=== PATIENT | male | born 1930 | race Caucasian/White ===

== ENCOUNTER 2017-09-22 14:07 | Inpatient (IN) | payer MEDICARE ==
[~2017-09-22] VITALS: Ht 180.3 cm; Wt 77.9 kg
[2017-09-22 15:11] LABS: BASOPHILS % (AUTO) 0.4 % (0.0-5.0); EOSINOPHILS % (AUTO) 1.7 % (0.0-8.0); HEMATOCRIT 27.2 % (42-54); MEAN CORPUSCULAR HEMOGLOBIN 34.4 pg (27.0-33.0); MEAN CORPUSCULAR HGB CONC 35.5 g/dL (32.0-36.0); MEAN CORPUSCULAR VOLUME 96.9 fL (79-99); MONOCYTES % (AUTO) 7.4 % (3.0-13.0); NEUTROPHILS % (AUTO) 77.5 % (40.0-77.0); PLATELET COUNT (AUTO) 220 K/uL (130-400); RED BLOOD CELL COUNT(AUTO) 2.81 MIL/uL (4.50-6.20); RED CELL DISTRIBUTION WIDTH 14.6 % (11.0-15.5); WHITE BLOOD COUNT (AUTO) 8.6 K/uL (4.8-10.8)
[2017-09-22 15:15] LABS: BILIRUBIN,URINE Negative (NEGATIVE); COLOR,URINE Yellow (YELLOW); GLUCOSE, URINE (UA) Negative (NEGATIVE); KETONES,URINE Negative (NEGATIVE); LEUKOCYTE ESTERASE ,URINE Large (NEGATIVE); NITRATE,URINE Negative (NEGATIVE); OCCULT BLOOD,URINE Moderate (NEGATIVE); PROTEIN,URINE Negative (NEGATIVE); UROBILINOGEN,URINE 0.2 mg/dL (0.2-1.0)
[2017-09-22 15:28] LABS: CREATININE 2.3 mg/dL (0.5-1.5); POTASSIUM 4.2 mmol/L (3.5-5.1)
[2017-09-22 15:33] LABS: ALBUMIN 1.8 g/dL (3.5-5.0); BILIRUBIN,TOTAL 0.6 mg/dL (0.2-1.0); TOTAL PROTEIN, SERUM 6.8 g/dL (6.0-8.3)
[2017-09-22 15:38] LABS: APPEARANCE,URINE SLIGHTLY CLOUDY (CLEAR)
[2017-09-22 15:51] LABS: BACTERIA,URINE Few /HPF (None Seen)
[2017-09-22 15:52] LABS: AMORPHOUS SEDIMENT,UR Few /LPF (None Seen); SQUAMOUS EPITHELIAL CELL,UR Rare /LPF (0-2)
[2017-09-22] MEDS ORDERED: CEFTRIAXONE SODIUM 2 GM VIAL ONE (16:58)
[2017-09-22] MEDS ORDERED: SODIUM CHLORIDE 0.9% 1000ML 1,000 ML IV ONE (16:58)
[2017-09-22] MEDS: SODIUM CHLORIDE 0.9% 1000ML 1,000 ML IV SCH (18:21)
[2017-09-22] MEDS ORDERED: HYDRALAZINE HCL 20 MG/ML VIAL IV PRN (18:30)
[2017-09-22] MEDS ORDERED: ONDANSETRON HCL 4 MG/2 ML VIAL IV PRN (18:30)
[2017-09-22] MEDS ORDERED: ACETAMINOPHEN-CODEINE 300/30MG TAB PO PRN (18:30)
[2017-09-22] MEDS ORDERED: LACTULOSE 20 GM/30 ML UDCUP PO PRN (18:30)
[2017-09-22] MEDS ORDERED: CEFTRIAXONE 1GM/D5W 50ML 50 ML IV SCH (18:30)
[2017-09-22] MEDS ORDERED: ACETAMINOPHEN 325 MG TAB PO PRN (18:30)
[2017-09-22] MEDS ORDERED: MORPHINE SULFATE 2 MG/ML 1ML SYG IV PRN (18:30)
[2017-09-22] MEDS ORDERED: GUAIFENESIN-DM 200/20 MG 10 ML PO PRN (18:30)
[2017-09-22] MEDS: FAMOTIDINE 20MG TAB 20 MG TAB PO SCH ×2 (21:00)
[2017-09-22] MEDS ORDERED: FAMOTIDINE 20MG TAB 20 MG TAB ONE (22:02)
[2017-09-22 23:03] VITALS: BP 90/62
[2017-09-22] MEDS ORDERED: RAMI10CA23 PO (23:29)
[2017-09-22] MEDS ORDERED: CLOP75TA14 PO (23:29)
[2017-09-22] MEDS ORDERED: OXYB5TAB10 PO (23:29)
[2017-09-22] MEDS ORDERED: METF500T6 PO (23:29)
[2017-09-22] MEDS ORDERED: SERT50TA PO (23:29)
[2017-09-22] MEDS ORDERED: ROSU20TA38 PO (23:29)
[2017-09-22] MEDS ORDERED: PANT40TA25 PO (23:29)
[2017-09-22] MEDS ORDERED: TAMS0.4C32 PO (23:29)
[2017-09-23] VITALS (7 sets, daily range): BP systolic 108–144; BP diastolic 45–78
[2017-09-23] MEDS ORDERED: DiphenhydrAMINE HCL 50 MG/ML VIAL ONE (00:20)
[2017-09-23] MEDS: SODIUM CHLORIDE 0.9% 1000ML 1,000 ML IV SCH ×2 (06:06→21:32)
[2017-09-23] MEDS: PANTOPRAZOLE SODIUM 40 MG TABLET.DR PO SCH (08:34)
[2017-09-23] MEDS: SERTRALINE HCL 50 MG TABLET PO SCH (09:00)
[2017-09-23] MEDS: LISINOPRIL 40 MG TABLET PO SCH (09:00)
[2017-09-23] MEDS: CLOPIDOGREL BISULFATE 75 MG TAB PO SCH (09:00)
[2017-09-23] MEDS: FAMOTIDINE 20MG TAB 20 MG TAB PO SCH ×3 (09:00→21:32)
[2017-09-23] MEDS: TAMSULOSIN HCL 0.4 MG CAP.ER.24H PO SCH (09:00)
[2017-09-23] MEDS: ENOXAPARIN SODIUM 40 MG/0.4 ML SYRINGE SQ SCH (09:00)
[2017-09-23] MEDS: CEFTRIAXONE SODIUM 1 GM IVP SCH (12:38)
[2017-09-23] MEDS: ATORVASTATIN CALCIUM 40 MG TABLET PO SCH (21:32)
[2017-09-23] MEDS: OXYBUTYNIN CHLORIDE 5 MG TABLET PO SCH (21:32)
[2017-09-23] MEDS: DiphenhydrAMINE HCL 50 MG/ML VIAL IV SCH ×2 (21:33)
[2017-09-24] MEDS: SODIUM CHLORIDE 0.9% 1000ML 1,000 ML IV SCH ×3 (00:31→20:46)
[2017-09-24 04:35] VITALS: BP 139/74
[2017-09-24 07:00] VITALS: BP 124/71
[2017-09-24] MEDS: LISINOPRIL 40 MG TABLET PO SCH (09:00)
[2017-09-24] MEDS: TAMSULOSIN HCL 0.4 MG CAP.ER.24H PO SCH (09:54)
[2017-09-24] MEDS: FAMOTIDINE 20MG TAB 20 MG TAB PO SCH ×2 (09:54→21:55)
[2017-09-24] MEDS: CLOPIDOGREL BISULFATE 75 MG TAB PO SCH (09:54)
[2017-09-24] MEDS: SERTRALINE HCL 50 MG TABLET PO SCH (09:55)
[2017-09-24] MEDS: PANTOPRAZOLE SODIUM 40 MG TABLET.DR PO SCH (09:58)
[2017-09-24] MEDS: ENOXAPARIN SODIUM 40 MG/0.4 ML SYRINGE SQ SCH (09:58)
[2017-09-24 11:00] VITALS: BP 110/58
[2017-09-24] MEDS: CEFTRIAXONE SODIUM 1 GM IVP SCH (11:13)
[2017-09-24 15:50] VITALS: BP 131/63
[2017-09-24 20:00] VITALS: BP 140/53
[2017-09-24] MEDS: ATORVASTATIN CALCIUM 40 MG TABLET PO SCH (21:55)
[2017-09-24] MEDS: OXYBUTYNIN CHLORIDE 5 MG TABLET PO SCH (21:55)
[2017-09-24] MEDS: DiphenhydrAMINE HCL 50 MG/ML VIAL IV SCH (23:16)
[2017-09-24 23:50] VITALS: BP 132/71
[2017-09-25 04:00] VITALS: BP 134/68
[2017-09-25] MEDS: SODIUM CHLORIDE 0.9% 1000ML 1,000 ML IV SCH ×2 (05:21→16:58)
[2017-09-25 06:18] LABS: BASOPHILS % (AUTO) 0.7 % (0.0-5.0); EOSINOPHILS % (AUTO) 2.6 % (0.0-8.0); HEMATOCRIT 27.6 % (42-54); LYMPHOCYTES % (AUTO) 15.1 % (21.0-51.0); MEAN CORPUSCULAR HEMOGLOBIN 33.2 pg (27.0-33.0); MEAN CORPUSCULAR HGB CONC 34.4 g/dL (32.0-36.0); MEAN CORPUSCULAR VOLUME 96.6 fL (79-99); MONOCYTES % (AUTO) 6.1 % (3.0-13.0); NEUTROPHILS % (AUTO) 75.5 % (40.0-77.0); PLATELET COUNT (AUTO) 239 K/uL (130-400); RED BLOOD CELL COUNT(AUTO) 2.85 MIL/uL (4.50-6.20); RED CELL DISTRIBUTION WIDTH 14.7 % (11.0-15.5); WHITE BLOOD COUNT (AUTO) 6.3 K/uL (4.8-10.8)
[2017-09-25 06:34] LABS: ALBUMIN 1.7 g/dL (3.5-5.0); BILIRUBIN,TOTAL 0.4 mg/dL (0.2-1.0); CREATININE 1.8 mg/dL (0.5-1.5); POTASSIUM 3.3 mmol/L (3.5-5.1); TOTAL PROTEIN, SERUM 6.3 g/dL (6.0-8.3)
[2017-09-25] MEDS: PANTOPRAZOLE SODIUM 40 MG TABLET.DR PO SCH (06:43)
[2017-09-25 07:00] VITALS: BP_SYST 133; BP_SYST 147; BP_DIAS 69; BP_DIAS 82
[2017-09-25] MEDS: SERTRALINE HCL 50 MG TABLET PO SCH (10:04)
[2017-09-25] MEDS: CLOPIDOGREL BISULFATE 75 MG TAB PO SCH (10:04)
[2017-09-25] MEDS: FAMOTIDINE 20MG TAB 20 MG TAB PO SCH ×2 (10:04→20:39)
[2017-09-25] MEDS: TAMSULOSIN HCL 0.4 MG CAP.ER.24H PO SCH (10:04)
[2017-09-25] MEDS: LISINOPRIL 40 MG TABLET PO SCH (10:04)
[2017-09-25] MEDS: ENOXAPARIN SODIUM 40 MG/0.4 ML SYRINGE SQ SCH (10:06)
[2017-09-25 11:00] VITALS: BP 130/62
[2017-09-25] MEDS: CEFTRIAXONE SODIUM 1 GM IVP SCH (12:00)
[2017-09-25 16:00] VITALS: BP 132/61
[2017-09-25 19:10] VITALS: BP 99/44
[2017-09-25] MEDS: OXYBUTYNIN CHLORIDE 5 MG TABLET PO SCH (20:39)
[2017-09-25] MEDS: ATORVASTATIN CALCIUM 40 MG TABLET PO SCH (20:39)
[2017-09-25 23:05] VITALS: BP 91/43
[2017-09-25] MEDS ORDERED: POTASSIUM CHLORIDE 20 MEQ ERTAB PO SCH (23:15)
[2017-09-25] MEDS ORDERED: POTASSIUM CHLORIDE 20 MEQ/100 ML BAG IV SCH (23:30)
[2017-09-26] MEDS: POTASSIUM CHLORIDE 20MEQ/100ML 100 ML IV SCH ×2 (00:03→20:08)
[2017-09-26] MEDS: SODIUM CHLORIDE 0.9% 1000ML 1,000 ML IV SCH (02:25)
[2017-09-26 03:05] VITALS: BP 112/61
[2017-09-26] MEDS ORDERED: GLUCAGON 1MG KIT 1 MG ML IM PRN (06:00)
[2017-09-26] MEDS: DEXTROSE 5 %-0.45 % NACL 1,000 ML IV SCH ×2 (06:00→15:09)
[2017-09-26] MEDS ORDERED: DEXTROSE 50%-WATER 50 ML DISP.SYRIN IV PRN (06:00)
[2017-09-26] MEDS ORDERED: DEXTROSE 5 %-0.45 % NACL 1,000 ML IV ONE (06:02)
[2017-09-26] MEDS ORDERED: DEXTROSE 50%-WATER 50 ML DISP.SYRIN IV ONE (06:02)
[2017-09-26] MEDS: INSULIN HUMULIN R 100 UNIT/ML 3ML SQ SCH ×4 (07:30→20:33)
[2017-09-26] MEDS: PANTOPRAZOLE SODIUM 40 MG TABLET.DR PO SCH (07:30)
[2017-09-26 07:44] VITALS: BP 134/54
[2017-09-26 07:59] LABS: CREATININE 1.8 mg/dL (0.5-1.5); POTASSIUM 3.3 mmol/L (3.5-5.1)
[2017-09-26] MEDS ORDERED: ZOSYN 3.375GM+NS 50ML 50 ML IV SCH (08:00)
[2017-09-26] MEDS: CLOPIDOGREL BISULFATE 75 MG TAB PO SCH (09:00)
[2017-09-26] MEDS: TAMSULOSIN HCL 0.4 MG CAP.ER.24H PO SCH (09:00)
[2017-09-26] MEDS: FAMOTIDINE 20MG TAB 20 MG TAB PO SCH ×2 (09:00→20:33)
[2017-09-26] MEDS: SERTRALINE HCL 50 MG TABLET PO SCH (09:00)
[2017-09-26] MEDS: LISINOPRIL 40 MG TABLET PO SCH (09:00)
[2017-09-26] MEDS: ENOXAPARIN SODIUM 40 MG/0.4 ML SYRINGE SQ SCH (09:27)
[2017-09-26] MEDS: CADEXOMER IODINE 40 GM GEL TP SCH (09:43)
[2017-09-26 10:51] VITALS: BP 126/49
[2017-09-26] MEDS ORDERED: POTASSIUM CHLORIDE 20 MEQ ERTAB PO PRN (12:45)
[2017-09-26] MEDS ORDERED: POTASSIUM CHLORIDE 10% ELIXIR 20 MEQ/15 ML UDCUP PO PRN (12:45)
[2017-09-26] MEDS: MEROPENEM 500 MG VIAL IVP SCH (15:01)
[2017-09-26] MEDS: POTASSIUM CHLORIDE 20MEQ/100ML 100 ML IV PRN ×2 (15:06→20:09)
[2017-09-26] MEDS: LIDOCAINE HCL-MPF 1% 2ML VIAL IVP PRN (15:06)
[2017-09-26 15:46] VITALS: BP 130/58
[2017-09-26 19:00] VITALS: BP 118/58
[2017-09-26] MEDS: OXYBUTYNIN CHLORIDE 5 MG TABLET PO SCH (20:33)
[2017-09-26] MEDS: ATORVASTATIN CALCIUM 40 MG TABLET PO SCH (20:33)
[2017-09-26 23:00] VITALS: BP 133/57
[2017-09-27] MEDS: MEROPENEM 500 MG VIAL IVP SCH ×2 (00:54→13:35)
[2017-09-27] MEDS: DEXTROSE 5 %-0.45 % NACL 1,000 ML IV SCH ×2 (00:54→11:32)
[2017-09-27 03:00] VITALS: BP 100/67
[2017-09-27 03:49] LABS: BASOPHILS % (AUTO) 0.7 % (0.0-5.0); EOSINOPHILS % (AUTO) 2.7 % (0.0-8.0); HEMATOCRIT 26.7 % (42-54); LYMPHOCYTES % (AUTO) 18.6 % (21.0-51.0); MEAN CORPUSCULAR HEMOGLOBIN 32.8 pg (27.0-33.0); MEAN CORPUSCULAR HGB CONC 33.7 g/dL (32.0-36.0); MEAN CORPUSCULAR VOLUME 97.6 fL (79-99); PLATELET COUNT (AUTO) 220 K/uL (130-400); RED BLOOD CELL COUNT(AUTO) 2.73 MIL/uL (4.50-6.20); RED CELL DISTRIBUTION WIDTH 15.1 % (11.0-15.5); WHITE BLOOD COUNT (AUTO) 5.4 K/uL (4.8-10.8)
[2017-09-27 04:18] LABS: CREATININE 1.7 mg/dL (0.5-1.5); MAGNESIUM 1.5 mg/dL (1.80-2.40); POTASSIUM 3.4 mmol/L (3.5-5.1)
[2017-09-27] MEDS: POTASSIUM CHLORIDE 20MEQ/100ML 100 ML IV PRN (04:34)
[2017-09-27] MEDS: INSULIN HUMULIN R 100 UNIT/ML 3ML SQ SCH ×3 (05:46→21:00)
[2017-09-27 07:00] VITALS: BP 114/43
[2017-09-27 08:00] VITALS: BP 141/57
[2017-09-27] MEDS: TAMSULOSIN HCL 0.4 MG CAP.ER.24H PO SCH (09:15)
[2017-09-27] MEDS: FAMOTIDINE 20MG TAB 20 MG TAB PO SCH ×2 (09:16→22:59)
[2017-09-27] MEDS: PANTOPRAZOLE SODIUM 40 MG TABLET.DR PO SCH (09:16)
[2017-09-27] MEDS: LISINOPRIL 40 MG TABLET PO SCH (09:16)
[2017-09-27] MEDS: SERTRALINE HCL 50 MG TABLET PO SCH (09:16)
[2017-09-27] MEDS: CLOPIDOGREL BISULFATE 75 MG TAB PO SCH (09:16)
[2017-09-27] MEDS: ENOXAPARIN SODIUM 40 MG/0.4 ML SYRINGE SQ SCH (09:17)
[2017-09-27] MEDS ORDERED: MAGNESIUM SULFATE 2 GM in SODIUM CHLORIDE 0.9% 50 ML IV SCH (10:45)
[2017-09-27] MEDS ORDERED: MAGNESIUM 2GM PREMIX 50ML 50 ML IV SCH (10:45)
[2017-09-27] MEDS: LIDOCAINE HCL-MPF 1% 2ML VIAL IVP PRN (11:30)
[2017-09-27] MEDS: POTASSIUM CHLORIDE 20MEQ/100ML 100 ML IV SCH (11:30)
[2017-09-27 12:15] VITALS: BP 141/57
[2017-09-27 16:00] VITALS: BP 135/76
[2017-09-27 20:00] VITALS: BP 130/68
[2017-09-27] MEDS: OXYBUTYNIN CHLORIDE 5 MG TABLET PO SCH (22:59)
[2017-09-27] MEDS: ATORVASTATIN CALCIUM 40 MG TABLET PO SCH (22:59)
[2017-09-28] VITALS: BP 108/43
[2017-09-28] MEDS: MEROPENEM 500 MG VIAL IVP SCH ×2 (02:35→13:00)
[2017-09-28 04:00] VITALS: BP 120/60
[2017-09-28] MEDS: DEXTROSE 5 %-0.45 % NACL 1,000 ML IV SCH (04:03)
[2017-09-28] MEDS: INSULIN HUMULIN R 100 UNIT/ML 3ML SQ SCH ×2 (06:26→11:30)
[2017-09-28] MEDS: PANTOPRAZOLE SODIUM 40 MG TABLET.DR PO SCH (06:46)
[2017-09-28 08:00] VITALS: BP 95/44
[2017-09-28] MEDS: LISINOPRIL 40 MG TABLET PO SCH (09:00)
[2017-09-28] MEDS: SERTRALINE HCL 50 MG TABLET PO SCH (09:29)
[2017-09-28] MEDS: FAMOTIDINE 20MG TAB 20 MG TAB PO SCH (09:30)
[2017-09-28] MEDS: CLOPIDOGREL BISULFATE 75 MG TAB PO SCH (09:31)
[2017-09-28] MEDS: ENOXAPARIN SODIUM 40 MG/0.4 ML SYRINGE SQ SCH (09:32)
[2017-09-28] MEDS: CADEXOMER IODINE 40 GM GEL TP SCH (09:33)
[2017-09-28] MEDS: TAMSULOSIN HCL 0.4 MG CAP.ER.24H PO SCH (09:34)
[2017-09-28 11:00] VITALS: BP 108/51
[2017-09-28] MEDS ORDERED: LEVO500T2 PO (11:34)
== END 2017-09-28 13:30 | disposition hospice, home (50) | DRG 872 ==
LOC: EDH 14:07 → EDHIP 18:21 → 3BH 21:55
PROVIDERS: ADMIT Family Medicine; ATTEND Family Medicine
DX: A41.9 Sepsis, unspecified organism (principal); N17.9 Acute kidney failure, unspecified; E11.649 Type 2 diabetes mellitus with hypoglycemia without coma; E83.42 Hypomagnesemia; F03.90 Unspecified dementia, unspecified severity, without behavioral disturbance, psychotic disturbance, mood disturbance, and anxiety; N39.0 Urinary tract infection, site not specified; F32.9 Major depressive disorder, single episode, unspecified; E78.5 Hyperlipidemia, unspecified; E87.6 Hypokalemia; I10 Essential (primary) hypertension; N40.0 Benign prostatic hyperplasia without lower urinary tract symptoms; Z86.73 Personal history of transient ischemic attack (TIA), and cerebral infarction without residual deficits; Z74.01 Bed confinement status; Z85.46 Personal history of malignant neoplasm of prostate
CPT/HCPCS: 36415; 71045; 80048; 80053; 81001; 82550; 82948; 83735; 83880; 84132; 84484; 85025; 87040; 87186; 87804; 92610; 93005; A4218; J0696; J1200; J1650; J2185; J3475; J3480; J3490; J7030; J7042; J7070